=== PATIENT | female | born 1960 | race Caucasian/White ===

== ENCOUNTER 2018-02-04 16:19 | Emergency (ER) | payer OTHER ==
[2018-02-04] MEDS ORDERED: Tetan/Diph/Pertus SYR(Tdap)* 0.5 ML SYR(BOOSTRIX) use SYR IM ONE (16:42)
--- NOTE | 2018-02-04 17:02 | ED ---
Skin Complaint - HPI Summary HPI Summary: [id number] patient presents with left index finger laceration prior to arrival. She reports she was using a clean sharp knife to help her daughter unpack and she externally slipped and cut her finger. She denies numbness, tingling, weakness as well as pain or stiffness however she was concerned that she couldn't get the bleeding to stop. She's had a pressure dressing on an as she removes it did show me her wound, the bleeding has stopped. She is not up- to-date with her tetanus however she declines that she said she is very sensitive to many medications and would prefer to avoid a reaction. She is aware of the risks and benefits of proceeding with/avoiding this immunization. Reports she wash the wound with soap and water after it happened and wrapped with a clean washcloth. - History of Current Complaint Chief Complaint: EDLacSutureRecheck Time Seen by Provider: 02/04/18 16:41 Stated Complaint: LT HAND LAC Hx Obtained From: Patient, Family/Alloy Weigher - daughter Pain Intensity: 2 - Allergy/Home Medications Allergies/Adverse Reactions: Allergies Allergy/AdvReac Type Severity Reaction Status Date / Time Adhesive Tape Allergy Blisters Verified 02/04/18 16:35 Benzodiazepines Allergy Eyes Verified 02/04/18 16:35 Itchy/Swollen/Red/Watery Cephalosporins Allergy Rash Verified 02/04/18 16:35 clindamycin Allergy Rash Verified 02/04/18 16:35 diphenhydramine Allergy See Comment Verified 02/04/18 16:35 [From Benadryl] Penicillins Allergy Rash Verified 02/04/18 16:35 PMH/Surg Hx/FS Hx/Imm Hx Previously Healthy: Yes Endocrine/Hematology History: 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 - swells and develops blisters locally Denies: Hx Anticoagulant Therapy, Hx Blood Disorders - Immunization History Immunizations Up to Date: No - by pt choice - "I don't vaccinate" Infectious Disease History: No Infectious Disease History: Denies: Traveled Outside the [place] in Last 30 Days Review of Systems Musculoskeletal: Negative Skin: Other - lac Neurological: Negative Psychological: Normal All Other Systems Reviewed And Are Negative: Yes Physical Exam Triage Information Reviewed: Yes Vital Signs On Initial Exam: Initial Vitals Temp Pulse Resp BP Pulse Ox 97.9 F 90 14 172/80 100 02/04/18 16:28 02/04/18 16:28 02/04/18 16:28 02/04/18 16:28 02/04/18 16:28 Vital Signs Reviewed: Yes Appearance: Positive: Well-Appearing, No Pain Distress, Well-Nourished Skin: Positive: Warm, Skin Color Reflects Adequate Perfusion, Dry - 1cm linear lac over Lt dorsal distal index finger - no active bleeding - through epidermis Head/Face: Positive: Normal Head/Face Inspection Eyes: Positive: EOMI - wearing dark colored glasses ENT: Positive: Hearing grossly normal Respiratory/Lung Sounds: Positive: Breath Sounds Present Cardiovascular: Positive: Pulses are Symmetrical in both Upper and Lower Extremities Musculoskeletal: Positive: Normal, Strength/ROM Intact Neurological: Positive: Normal, Sensory/Motor Intact, Alert, Oriented to Person Place, Time Psychiatric: Positive: Normal Procedures - Laceration/Wound Repair 1 Location: upper extremity - Lt index finger, dorsal aspect Description: Linear Length, Depth and Shape: 1cm x 2mm Irrigated w/ Saline (ccs): 250 - water and hibaclens soak Laceration/Wound Explored: clean Closure: Skin Adhesive, SteriStrips - splinted - hemodynamically stable Diagnostics - Vital Signs Vital Signs Temp Pulse Resp BP Pulse Ox 02/04/18 16:28 97.9 F 90 14 172/80 100 - Laboratory Lab Statement: Any lab studies that have been ordered have been reviewed, and results considered in the medical decision making process. Course/Dx - Diagnoses Provider Diagnoses: Laceration of left index finger Discharge - Sign-Out/Discharge Documenting (check all that apply): Patient Departure - Discharge Plan Condition: Stable Disposition: HOME Patient Education Materials: Finger Laceration (ED), Skin Adhesive Care (ED) Additional Instructions: Keep Dressing clean and dry and in place for the next 5 days. After that time you may remove dressing, gently wash wound with soap and water, rinse well and pat dry with clean cloth. Reapply splint to prevent opening wound unless it has closed at this time. Avoid soaking. For pain, you may try rest, ice and elevation along with ibuprofen with food as needed * If you develop redness, swelling, streaking, purulent drainage, fevers or chills, seek medical attention sooner or return to the emergency department. - Billing Disposition and Condition Condition: STABLE Disposition: Home
[2018-02-04 17:41] VITALS: BP 151/64
== END 2018-02-04 17:40 | disposition home or self-care (01) ==
LOC: ED 16:19